=== PATIENT | female | born 1995 | race African-American/Black ===

== ENCOUNTER 2016-08-19 15:23 | Emergency (ER) | payer MEDICAID ==
[2016-08-19 15:54] LABS: URINE SOURCE CLEAN CATCH
[2016-08-19 16:07] LABS: URINE APPEARANCE CLOUDY; URINE BILIRUBIN NEG (NEG); URINE BLOOD 2+ (NEG); URINE COLOR YELLOW; URINE GLUCOSE NEG (NEG); URINE KETONE TRACE (NEG); URINE LEUKOCYTE ESTERASE NEG (NEG); URINE NITRATE NEG (NEG); URINE PH 5.5 (5-8); URINE PROTEIN NEG (NEG); URINE SPECIFIC GRAVITY 1.033 (1.003-1.035)
[2016-08-19 16:11] LABS: CULTURE INDICATED? YES; URINE BACTERIA AUWI 1+ (NEGATIVE); URINE SQUAMOUS EPITHELIAL CELL MOD /[HPF]
== END 2016-08-19 16:55 | disposition home or self-care (01) ==
LOC: CFTX 15:23 → CED 15:23 → CFTX 16:36
PROVIDERS: Emergency Medicine
DX: R30.0 Dysuria (principal); J45.909 Unspecified asthma, uncomplicated
CPT/HCPCS: 81003; 84703; 87086; 99283